=== PATIENT | female | born 1975 | race Caucasian/White ===

== ENCOUNTER 2021-08-16 10:44 | Emergency (ER) | payer BC, SELFPAY ==
[2021-08-16 10:55] VITALS: BP 138/103; PULSE 80; RESP 14; TEMP 36.7; O2SAT 98
--- NOTE | 2021-08-16 11:00 | DI.CT_ITS ---
Exam(s) CT HEAD CERVICAL SPINE WO EXAM: CT HEAD CERVICAL SPINE WO CLINICAL HISTORY: fall, occipital head injury. TECHNIQUE: Imaging Protocol: Axial computed tomography images with coronal and sagittal reformatted images were created and reviewed COMPARISON: No exams were available for comparison FINDINGS: CT Head: Ventricles and Extra axial spaces: Normal in size and morphology for the patient's age. Hemorrhage: None. Cerebral parenchyma: Normal. Midline shift: None. Brainstem/Cerebellum: Normal. Calvarium: Normal. Visualized Paranasal sinuses/Mastoids: Mucous retention cysts or polyps are seen in the maxillary sin uses bilaterally. The remaining visualized paranasal sinuses are clear. The mastoid air cells are w ell pneumatized. Soft Tissues: Unremarkable. CT Cervical Spine: Bones: No acute fracture or subluxation. There is straightening of the normal cervical lordosis. Thi s may be due to muscle spasm or patient positioning. Soft Tissues: Unremarkable. Lung Apices: Clear. IMPRESSION: 1. No acute intracranial process. 2. No acute fracture or subluxation in the cervical spine. RADIATION DOSE DELIVERED: 1,226.36mGy.cm Total DLP DATA REPOSITORY: All CT scans at this facility are submitted to the National Radiology Data Registry (NRDR) Dose Index Registry (DIR) with the [employer] ([employer]). RADIATION OPTIMIZATION: All CT scans at this facility use at least one of these dose optimization te chniques: automated exposure control; mA and/or kV adjustment per patient size (includes targeted exa ms where dose is matched to clinical indication); or iterative reconstruction.
--- NOTE | 2021-08-16 11:21 | ED.GENADUL_ITS ---
Discharge Plan Disposition Patient Disposition: HOME Condition: Improving Discharge Details Clinical Impression: Concussion, Neck strain Primary Care Provider: Unknown,Unknown ED Provider: Colten Carlin Home Meds and New Rx's Prescriptions: Continued lorazepam 2 mg Tablet 2 mg PO DAILY 0RF propranolol 20 mg Tablet 20 mg PO DAILY 0RF Trintellix 5 mg Tablet 5 mg PO DAILY 0RF Discharge Instructions Instructions: Cervical Strain (ED), Concussion (ED) Additional Instructions: Please follow-up with your primary care physician. Please return to the emergency department for any signs of severe neurologic distress such as uncontrolled vomiting weakness numbness speech changes. Continue with Motrin Tylenol ice and rest low stimulation environment at home if possible. Medical Decision Making 46-year-old female presents several days after mechanical fall slip on ice hitting her scalp, pain in neck with midline cervical tenderness, ecchymosis to right elbow however full range of motion neurovascular exam of limb intact, 5-5 strength no ataxia no cranial nerve deficits, TMs unremarkable, hemodynamically stable, no vomiting no LOC. High clinical suspicion for concussion versus neck strain versus less likely cervical spine fracture or subluxation, low suspicion for dislocation or fracture of elbow given normal examination, likely simple contusion; low suspicion for intracranial hemorrhage or skull fracture patient does not want any analgesia at this time has been taking Motrin Tylenol. Given midline tenderness and neurologic symptomatology will obtain CT C-spine as well as CT head 14: 13 patient rest comfortably no acute distress neurologically intact no nausea or vomiting. CT head and CT C-spine unremarkable. Home care instructions for concussion given and return precautions given for worsening neurologic status. Will follow with primary care physician. HPI General Date/Time Provider Initiated Documentation: 08/16/21 11:04 . HPI Narrative: 46-year-old female presents several days after mechanical fall on ice fell backwards hit occipital scalp and right elbow, no loss of conscious no vomiting, does endorse feeling a bit foggy, does have some confusion, denies focal motor weakness, denies blood thinner use. Has been eating and drinking okay. No chest abdominal or other trauma does have a mild neck discomfort Related Data Home Medications Medication Instructions Recorded Confirmed lorazepam 2 mg tablet 2 mg PO DAILY 08/16/21 08/16/21 propranolol 20 mg tablet 20 mg PO DAILY 08/16/21 08/16/21 vortioxetine 5 mg tablet 5 mg PO DAILY 08/16/21 08/16/21 (Trintellix) Allergies Allergy/AdvReac Type Severity Reaction Status Date / Time latex AdvReac Itching Unverified 08/16/21 10:58 nickel AdvReac Itching Unverified 08/16/21 10:58 General Stated Complaint: HeadInjury DAYANA: 3 Review of Systems Narrative: Review of Systems Constitutional: negative Eyes: negative ENT: negative Cardiovascular: negative Respiratory: negative Gastrointestinal: negative : negative Musculoskeletal: Neck pain Skin: negative Neurologic: Head injury, confusion Psych: negative PFSH All Active Problems (Updated 08/16/21 @ 14:14 by Colten Carlin MD) Concussion (Acute) Neck strain (Acute) Social History Smoking/Tobacco Use Status: Never Smoking risk assessment performed?: Yes Alcohol Intake: current Alcohol Intake frequency: a few times a week Alcohol type: wine Drug use: Never Substance use type: does not use Do you feel safe at home: Yes Exam Narrative Exam Narrative: Physical Examination General: alert, awake, cooperative, resting comfortably, no acute distress HEENT: normocephalic, atraumatic; PERRL, EOM intact, conjunctiva normal; no nasal discharge; moist mucous membranes, oral and pharyngeal mucosa normal, tolerating secretions; TMs unremarkable Neck: supple, trachea midline; midline cervical tenderness without crepitus or deformity Chest: normal to inspection Respiratory: normal respiratory effort, speaking in full sentences, clear to auscultation, no wheezing, rales or rhonchi Cardiac: regular rate, regular rhythm, S1S2 intact, no murmurs rubs or gallops GI: abdomen soft, non-tender, non-distended; no palpable mass or hepatosplenomegaly Back: No thoracic lumbar sacral discomfort, no midline tenderness, no crepitus or deformity, range of motion intact Skin: no lesions, rashes or trauma appreciated Neuro: AAOx3, normal speech, moving all extremities, 5 out of 5 strength upper and lower extremities, no ataxia, no cranial nerve deficits Extremities: Full range of motion of extremities, does have ecchymosis to medial aspect of right elbow, no crepitus or deformity, sensation median radial ulnar distribution intact warm well perfused extremity Psych: Appropriate mood and affect Course Vital Signs Vital signs: Vital Signs Temperature 36.7 C 08/16/21 10:55 Pulse 80 08/16/21 10:55 Respiratory Rate 14 08/16/21 10:55 Blood Pressure 138/103 H 08/16/21 10:55 Pulse Oximetry 98 08/16/21 10:55 Temperature 36.7 C 08/16/21 10:55 Temperature Source Temporal Artery Scan 08/16/21 10:55 Pulse 80 08/16/21 10:55 Respiratory Rate 14 08/16/21 10:55 Respiratory Effort Non-Labored 08/16/21 11:00 Respiratory Depth Normal 08/16/21 11:00 Respiratory Pattern Normal 08/16/21 11:00 Blood Pressure 138/103 H 08/16/21 10:55 Blood Pressure Position Sitting 08/16/21 10:55 Pulse Oximetry 98 08/16/21 10:55 Oxygen Delivery Method Room Air 08/16/21 10:55 Oxygen Flow Rate 0 08/16/21 10:55 Pain Level 4 08/16/21 10:55 PAWSS Have you Been Recently Intoxicated or Drunk Within the Last 30 days?: Yes Have you Ever Experienced Previous Episodes of Alcohol Withdrawal?: No Have you ever Experienced Withdrawal Seizures?: No Have you ever Experienced Delirium Tremens(DT)s?: No Have you ever undergone Alcohol Rehabilitation Treatment (i.e, inpt ot outpatient treatment programs)?: No Have you ever Experienced Blackouts?: No Have you ever Combined Alcohol with other Downers within the last 90 days?: No Have you ever Combined Alcohol with any other Substance of Abuse during the last 90 days?: No Positive Blood Alcohol level on Presentation? [PCS.BAL]: No Evidence of Increased Autonomic Activity (i.e. HR>120, tremor, sweating, agitation, nausea)?: No Result: 1
--- NOTE | 2021-08-16 13:13 | DI.VRAD_ITS ---
PROCEDURE INFORMATION: Exam: CT Head Without Contrast Exam date and time: 08/16/2021 11:13 AM Age: 46 years old Clinical indication: Injury or trauma; Concussion/head injury; Consciousness not specified; Injury details: Fall, occipital head injury TECHNIQUE: Imaging protocol: Computed tomography of the head without contrast. Radiation optimization: All CT scans at this facility use at least one of these dose optimization techniques: automated exposure control; mA and/or kV adjustment per patient size (includes targeted exams where dose is matched to clinical indication); or iterative reconstruction. COMPARISON: No relevant prior studies available. FINDINGS: Brain: The ventricles and the cortical sulci are within normal limits. There is no evidence of acute hemorrhage, mass or shift. There is no evidence of an acute cortical or major vascular territory infarct. No abnormal extra-axial collections are identified. Cerebral ventricles: No significant ventricular enlargement/hydrocephalus. Paranasal sinuses: Retention cysts are seen inferiorly in the maxillary antra. There is no other significant sinus opacification or fluid level Mastoid air cells: No significant mastoid opacification Bones/joints: There is no acute bony abnormality Soft tissues: Subcutaneous soft tissues are unremarkable IMPRESSION: No acute findings. PROCEDURE INFORMATION: Exam: CT Cervical Spine Without Contrast Exam date and time: 08/16/2021 11:13 AM Age: 46 years old Clinical indication: Injury or trauma; Concussion/head injury; Consciousness not specified; Injury details: Fall, occipital head injury TECHNIQUE: Imaging protocol: Computed tomography images of the cervical spine without contrast. COMPARISON: No relevant prior studies available. FINDINGS: Bones/joints: There is straightening of the cervical lordosis which may be positional or due to spasm. Bony mineralization is within normal limits. There is no evidence of an acute fracture. There is no decrease of vertebral body height. There is no acute or destructive bony abnormality Discs/Spinal canal/Neural foramina: The canal, foramina appear patent at all visualized levels by CT examination. Lungs: No significant abnormality is identified at the visualized lung apices. Soft tissues: There is no evidence of a discrete soft tissue mass in the neck. IMPRESSION: No acute fracture in the cervical spine Dictated and Authenticated by: Sophie Mayo MD. Ordering:JERRY Abel MD
[2021-08-16] MEDS: Dexamethasone 4 MG TAB 10 MG PO (13:27)
[2021-08-16] MEDS: Acetaminophen 325 MG TAB 650 MG PO (13:27)
[2021-08-16 14:22] VITALS: PULSE 69; TEMP 36.4; O2SAT 98
[2021-08-16 14:27] VITALS: BP 141/106; PULSE 69; RESP 18; TEMP 36.4; O2SAT 98
== END 2021-08-16 14:26 | disposition home or self-care (01) ==
PROVIDERS: Emergency Provider Emergency Medicine
DX: S06.0X0A Concussion without loss of consciousness, initial encounter (principal); S16.1XXA Strain of muscle, fascia and tendon at neck level, initial encounter
CPT/HCPCS: 99284; 70450; 72125; 99283; J8540